=== PATIENT | female | born 1960 | race African-American/Black ===

== ENCOUNTER 2017-08-13 13:18 | Emergency (ER) | END 2017-08-13 18:06 | disposition left against medical advice (07) ==

== ENCOUNTER 2018-07-22 21:45 | Emergency (ER) | payer OTHER ==
[~2018-07-22] VITALS: Wt 128.1 kg
--- NOTE | 2018-07-22 22:12 | ERD ---
ER Documentation Chief Complaint Chief Complaint Epigastric abdominal pain HPI The patient is a 57-year-old female, presenting to the ER because of intermittent epigastric abdominal pain for more than a week, worse tonight, better after she burped, denies chest pain with vomiting/radiation/exertion/diaphoresis. She denies fever, chills, neck pain, nausea, vomiting, dizzy, diarrhea. She does not smoke, drinks socially, denies illicit drug Past medical history: Asthma, CAD Past surgical history: CABG in October 2009, 4 ROS All systems reviewed and are negative except as per history of present illness. Medications Home Meds Active Scripts Pantoprazole* (Protonix*) 40 Mg Tablet., 40 MG PO DAILY, #20 TAB Prov:LION QUACH MD 07/23/18 Reported Medications Aspirin Ec (Aspir 81) 81 Mg Tablet.dr, 81 MG PO DAILY, #30 TAB 07/22/18 Albuterol Sulfate* (Ventolin HFA*) 18 Gm Hfa.aer.ad, 2 PUFF INHALATION Q4H, #1 INHALER 07/22/18 Allergies Allergies: Coded Allergies: Unknown: Unable to obtain (Unverified , 07/22/18) Physical Exam Vitals Vital Signs Date Temp Pulse Resp B/P (MAP) Pulse Ox O2 O2 Flow FiO2 Time Delivery Rate 07/23/18 98.1 62 14 147/67 99 Room Air 02:00 (93) 07/23/18 62 14 126/64 99 Room Air 00:09 (84) 07/22/18 98.1 72 18 183/91 100 Room Air 22:15 (121) 07/22/18 98.1 80 18 239/115 100 21:52 (156) Physical Exam Const: No acute distress. Head: Atraumatic. Eyes: Normal Conjunctiva. ENT: Normal External Ears, Nose and Mouth. Neck: Full range of motion. No meningismus. Resp: Clear to auscultation bilaterally. Cardio: Regular rate and rhythm. Abd: Soft, non distended, normal bowel sounds, mild epigastric abdominal tenderness, no right lower quadrant/right upper quadrant/rigidity/rebound/CVA tenderness Skin: No petechiae or rashes. Back: No midline or flank tenderness. Ext: No cyanosis, or edema. Neur: Awake and alert. No focal deficit Psych: Normal Mood and Affect. Result Diagram: 07/22/18223407/22/182234 Results 24 hrs Laboratory Tests Test 07/22/18 22:35 07/22/18 22:47 White Blood Count 8.4 10^3/ul Red Blood Count 4.52 10^6/ul Hemoglobin 13.0 g/dl Hematocrit 40.2 % Mean Corpuscular Volume 88.9 fl Mean Corpuscular Hemoglobin 28.8 pg Mean Corpuscular Hemoglobin Concent 32.3 g/dl Red Cell Distribution Width 13.9 % Platelet Count 251 10^3/UL Mean Platelet Volume 12.0 fl Immature Granulocytes % 0.100 % Neutrophils % 34.4 % Lymphocytes % 57.7 % Monocytes % 5.6 % Eosinophils % 1.7 % Basophils % 0.5 % Nucleated Red Blood Cells % 0.0 /100WBC Immature Granulocytes # 0.010 10^3/ul Neutrophils # 2.9 10^3/ul Lymphocytes # 4.9 10^3/ul Monocytes # 0.5 10^3/ul Eosinophils # 0.1 10^3/ul Basophils # 0.0 10^3/ul Nucleated Red Blood Cells # 0.0 10^3/ul Sodium Level 142 mmol/L Potassium Level 4.0 mmol/L Chloride Level 102 mmol/L Carbon Dioxide Level 27 mmol/L Anion Gap 13 Blood Urea Nitrogen 13 mg/dl Creatinine 1.06 mg/dl Est Glomerular Filtrat Rate mL/min > 60 mL/min Glucose Level 105 mg/dl Calcium Level 9.0 mg/dl Total Bilirubin 0.2 mg/dl Direct Bilirubin 0.00 mg/dl Indirect Bilirubin 0.2 mg/dl Aspartate Amino Transf (AST/SGOT) 17 IU/L Alanine Aminotransferase (ALT/SGPT) 22 IU/L Alkaline Phosphatase 81 IU/L Troponin I < 0.012 ng/ml Total Protein 7.4 g/dl Albumin 4.2 g/dl Globulin 3.20 g/dl Albumin/Globulin Ratio 1.31 Lipase 95 U/L Bedside Urine pH (LAB) 7.5 Bedside Urine Protein (LAB) Negative Bedside Urine Glucose (UA) Negative Bedside Urine Ketones (LAB) Negative Bedside Urine Blood Negative Bedside Urine Nitrite (LAB) Negative Bedside Urine Leukocyte Esterase (L Negative Current Medications Medications Dose Sig/Ian Start Time Status Last (Trade) Ordered Route PRN Stop Time Admin Dose Reason Admin 40 ml ONCE ONCE 07/22/18 DC 07/22/18 Miscellaneous PO 23:00 23:04 Medication 07/22/18 23:16 (Gi Cocktail (2)) Procedures/MDM EKG: Read by emergency physician Rate/Rhythm: Normal Sinus Rhythm 73 beats/min QRS, ST, T-waves: No ST elevation, anterior T abnormality Impression: Abnormal EKG [address] [address] Radiology Main Line: [phone] DIAGNOSTIC IMAGING REPORT Patient: CATALINO FITZPATRICK : 1960 Age: 57 Sex: F MR #: [id number] DOS: 07/23/182235 Ordering MD: LION QUACH MD Location: E/R Room/Bed: PROCEDURE: US Abdomen. CLINICAL INDICATION: Abdominal pain. TECHNIQUE: Multiple real-time images were acquired of the patient's abdomen and retroperitoneum utilizing a high resolution transducer. COMPARISON: None FINDINGS: Liver: Diffusely increased echogenicity of the liver is seen. The liver is enlarged measuring 19.7 cm in length. <No focal lesion. The main portal vein is patent and demonstrates hepato pedal flow. Biliary: The gallbladder has been surgically removed. No biliary dilitation. The common duct measures 4.5 mm in diameter. Pancreas: Overlying bowel gas completely obscures the pancreas. Kidneys: The right kidney is normal in size and demonstrates normal echogenicity and cortical thickness. The right kidney measures 10.4 cm in length. There is no hydronephrosis, renal mass or stone. Other: No free fluid is identified. IMPRESSION: Hepatic steatosis and hepatomegaly. Status post cholecystectomy. RPTAT: HEUY Physician amanda Date Time Electronically viewed and signed by Physician amanda on 07/23/2018 01:27 ry/ CC: LION QUACH MD [id number] [address] [address] Radiology Main Line: [phone] DIAGNOSTIC IMAGING REPORT Patient: CATALINO FITZPATRICK : 1960 Age: 57 Sex: F [id number] DOS: 07/22/18 2236 Ordering MD: LION QUACH MD Location: E/R Room/Bed: PROCEDURE: XR Chest. CLINICAL INDICATION: Abdominal pain. TECHNIQUE: Single portable view of the chest was obtained COMPARISON: None FINDINGS: The cardiomediastinal silhouette is normal. Midline sternotomy wires are seen. There is no focal airspace consolidation or evidence of pulmonary vascular congestion. Mild bibasilar atelectasis. There is no pleural effusion or pneumothorax. The visualized osseous structures and soft tissues are unremarkable. IMPRESSION: 1. Mild bibasilar atelectasis. RPTAT: HEUY. Physician amanda Date Time Electronically viewed and signed by wendi swartz Physician on 07/22/2018 23:27 ry/ CC: LION QUACH MD [id number] MEDICAL MAKING DECISION: The patient is a 57-year-old female, presenting with acute epigastric abdominal pain, was treated with gastrointestinal cocktail with good response, is stable for outpatient follow-up The differential diagnoses considered include but are not limited to cholelith iasis, cholecystitis, choledocholithiasis, cholangitis, pancreatitis, hepatitis, gastritis, peptic ulcer disease, gastric ulcer, appendicitis, cystitis, diverticulitis, partial small bowel obstruction. Departure Diagnosis: Primary Impression: Epigastric abdominal pain Additional Impression: Hepatic steatosis Condition: Good Comments She was discharged with Protonix I discussed the findings with the patient. I advised the patient to follow-up with the primary physician in about 2-3 days for reevaluation and referral to gastroenterology for endoscopy, sooner if needed and return if any concern. Disclaimer: Inadvertent spelling and grammatical errors are likely due to EHR/dictation software use and do not reflect on the overall quality of patient care. Also, please note that the electronic time recorded on this note does not necessarily reflect the actual time of the patient encounter. LION QUACH MD Jul 22, 2018 22:12
[2018-07-22] MEDS ORDERED: LIDOCAINE/MYLANTA 40 ML BTL PO ONE (23:00)
[2018-07-22] MEDS ORDERED: ASPI-535 PO (23:14)
[2018-07-22] MEDS ORDERED: ALBU18HF INHALATION (23:14)
[2018-07-23] MEDS ORDERED: PANT40TA3 PO (01:54)
[2018-07-23 02:00] VITALS: BP 147/67; PULSE 62; RESP 14
== END 2018-07-23 03:11 | disposition home or self-care (01) ==
LOC: E/R 21:45
DX: K76.0 Fatty (change of) liver, not elsewhere classified (principal); I25.10 Atherosclerotic heart disease of native coronary artery without angina pectoris; J45.909 Unspecified asthma, uncomplicated; Z95.1 Presence of aortocoronary bypass graft
CPT/HCPCS: 36415; 71045; 76705; 80053; 81003; 83690; 84484; 85025; 93005; Z7502; Z7610